=== PATIENT | male | born 1995 | race Caucasian/White ===

== ENCOUNTER 2022-11-10 21:58 | Emergency (ER) | payer SELFPAY ==
[~2022-11-10] VITALS: Ht 162.6 cm; Wt 79.4 kg
[2022-11-10] MEDS ORDERED: DIPHTH/TETANUS/ACEL. PERTUSSIS 0.5 ML SYR IM ONE (22:30)
[2022-11-10] MEDS ORDERED: TETANUS/DIPHTHERIA TOX ADULT 0.5 ML SYR ONE (22:51)
[2022-11-10] MEDS ORDERED: NEOMYCIN/POLYMYX/BACITR OINT 0.9 GM PKT ONE (23:01)
[2022-11-10] MEDS ORDERED: BACITRACIN ZINC 0.9GM TP ONE (23:35)
[2022-11-11 00:02] VITALS: BP 144/98
== END 2022-11-11 00:02 | disposition home or self-care (01) ==
LOC: FSED 22:07
DX: T23.261A Burn of second degree of back of right hand, initial encounter (principal); T23.121A Burn of first degree of single right finger (nail) except thumb, initial encounter; X10.2XXA Contact with fats and cooking oils, initial encounter; Y93.89 Activity, other specified; Y92.000 Kitchen of unspecified non-institutional (private) residence as the place of occurrence of the external cause; Y99.8 Other external cause status; Z23 Encounter for immunization
CPT/HCPCS: 90471; 90714; 99282